=== PATIENT | male | born 2000 | race Caucasian/White ===

== ENCOUNTER 2024-12-13 17:08 | Emergency (ER) | payer BC, SELFPAY ==
[2024-12-13 17:45] VITALS: BP 133/67; PULSE 89; RESP 16; TEMP 36.6; O2SAT 100
--- NOTE | 2024-12-13 18:33 | ED_ITS ---
HPI - Skin/Abscess/Foreign Bdy General Chief complaint: Skin/Abscess/Foreign Body Stated complaint: INJURED R ELBOW/R KNEE/R LOWER LEG Time Seen by Provider: 12/13/24 18:33 Source: patient and RN notes reviewed Mode of arrival: ambulatory Limitations: no limitations History of Present Illness HPI narrative: 24-year-old male presents [facility] complaining of multiple rashes to his right arm and right leg. States be going for 1 week. Patient does jujitsu frequently and thought at 1st that it was mapped burn from being thrown on the mats a jujitsu. Patient has been trying antibacterial soap for symptom man agement without relief. Patient reports that rashes or itchy and weeping. Is also reports having redness and swelling to his chest. Patient also has acne on his back. Patient denies any fevers, body aches, chills, red streaking, nausea, vomiting, diarrhea. Related Data Allergies Allergy/AdvReac Type Severity Reaction Status Date / Time No Known Allergies Allergy Verified 12/13/24 17:59 Review of Systems Review of Systems: CONSTITUTIONAL: Denies fever, chills, or sweats. EYES: Denies visual changes, redness, or discharge. ENT: Denies rhinorrhea, congestion, sore throat, or otalgia. CARDIOVASCULAR: Denies chest pain, palpitations, or edema. RESPIRATORY: Denies cough or dyspnea. GASTROINTESTINAL: Denies abdominal pain, nausea, vomiting, or diarrhea. GENITOURINARY: Denies dysuria or hematuria. SKIN: Positive for rash and itching. MUSCULOSKELETAL: Denies back pain, joint pain, or myalgia. NEUROLOGIC: Denies headache, numbness, or weakness. PSYCHIATRIC: Denies anxiety or depression. All other systems reviewed are negative, except as documented in HPI. [facility] Past Medical History Medical History Migraine Family History Family History Mother Asthma Diabetes mellitus Depression Anxiety Heart disease Cerebrovascular accident Grandparent Alcoholism Asthma Cancer Diabetes mellitus Hypertension Heart disease Cerebrovascular accident Other Family history of alcoholism Social History Social History Social History: Caffeine- coffee/tea 2 cups daily Smoking status: Never smoker Alcohol intake: current Alcohol use details: occasionally Substance use: never Lack of Transportation: No Lack of Food: Never True Current Housing: I Have Housing Concerned About Future Housing: No Difficulty Paying Gas/Electric Bills: No Difficulty Paying for Meds: No Currently Unemployed: No Education: High School Diploma/GED Difficulty w/ Childcare or Family Care: No Living arrangements: with roommate(s) Agree to blood products: Yes Comments At the time of my signature, I reviewed and agree with the nursing past medical, surgical, social, and family history. There is no relevant family history pertinent to the patient complaint. Exam Narrative: GENERAL: This is a well-nourished, well-developed adult, in no apparent distress. They are non ill-appearing, nontoxic appearing. HEAD: normocephalic, atraumatic. EYES: Sclera clear/white. Conjunctiva normal. Vision is grossly intact. Extraocular movements intact EARS: External ears normal, Hearing grossly intact. NOSE: External nose normal THROAT: Mucous membranes moist, NECK: Normal range of motion CARDIOVASCULAR: Regular rate and rhythm RESPIRATORY: Respiratory rate normal, respiratory effort nonlabored, no respiratory distress SKIN: Right arm: Multiple circular and oval lesions throughout the patient's right arm primarily located around the right elbow extending to the proximal humerus to the proximal forearm. They are erythematous and hyperpigmented, some are scaly with central clearing present. Some lesions present with raised borders. Lesions are pruritic with some excoriations present. Satellite lesions present. No area of fluctuance or induration. Right leg: Multiple circular and oval lesions throughout the patient's right lower leg primarily located around the right anterior knee extending to the distal femur to the proximal tibia/fibula surface area. They are erythematous and hyperpigmented some lesions scaly with central clearing present. Some lesions present with raised borders. Lesions are pruritic with some excoriation present. Satellite lesions present. No area of fluctuance or induration. Chest wall: Area erythema of that is raised in macular. It is warm to touch. Induration present. No area of fluctuance. Area of erythema measuring approximately 3 cm x 2 cm located on the left lower medial chest wall. Back: Acne and small pustules present throughout patient is back. NEURO: awake, alert, and oriented to person, place and time. There were no obvious focal neurologic abnormalities. EXTREMITIES: No joint tenderness, effusion, or edema noted. BACK: Nontender without deformity. Course Course Emergency Course: Portions of this record may have been created with voice recognition software Level of Care: Express Care Visit Vital Signs Vital signs: Vital Signs Temperature 97.9 F 12/13/24 17:45 Pulse Rate 89 12/13/24 17:45 Respiratory Rate 16 12/13/24 17:45 Blood Pressure 133/67 12/13/24 17:45 Pulse Oximetry 100 12/13/24 17:45 Temperature 97.9 F 12/13/24 17:45 Pulse Rate 89 12/13/24 17:45 Respiratory Rate 16 12/13/24 17:45 Blood Pressure 133/67 12/13/24 17:45 Pulse Oximetry 100 12/13/24 17:45 Reviewed MDM - Skin/Abscess/Foreign Bdy MDM Narrative Medical decision making narrative: Symptoms are consistent with a tinea corporis. Patient also likely has a mild cellulitis to his chest wall. Given the excoriation and cellulitis present to the patient's chest wall, go ahead and treat empirically with doxycycline. Will also treat tinea corporis with clotrimazole cream. Discussed with patient the doxycycline may cause a sun rash so to wear sunscreen while taking doxycycline if he is going to be outside. Discussed physical exam findings. Advised supportive measures and signs/symptoms to go to the ER. Pt is appropriate for outpt treatment and f/u. Differential Diagnosis Differential diagnosis: Likely abscess of skin or subcutaneous tissue, dermatoph ytosis and cellulitis Critical Care Time Critical Care Time Critical Care Time: No Discharge Plan Discharge Clinical Impression: Tinea corporis, Cellulitis Patient Disposition: Home Condition: Stable Instructions: Antibiotic Form, Cellulitis (ED), Tinea Corporis (ED) Additional Instructions: Take the antibiotics as directed. Appears to have cellulitis on her chest. Also appears that you have ringworm or yeast infection to her right arm and right leg. Use the clotrimazole for 4 weeks. Please follow-up with your primary care provider for further evaluation and management. Please avoid any antibacterial soap. Washer skin daily with mild soap and water. Please keep your wounds covered while working. Please keep the wounds dry. Avoid any jujitsu or martial arts and tell your symptoms subside. Avoid scratching the w ounds is you may spread it to other parts of your body. May take Zyrtec or Claritin as needed for itchiness. If you develop any fevers, worsening symptoms, worsening redness or swelling, or any other concerns please go to the ER immediately. Patient Language: [place] Prescriptions: New clotrimazole 1 % cream 1 applic topical BID 28 Days Qty: 30 0RF doxycycline monohydrate 100 mg capsule 100 mg PO BID 7 Days Qty: 14 0RF Follow-up/Referrals: PHYSICIAN,EMERGENCY RESPONSE OFFICER [Primary Care Provider] - Stand Alone Forms: Work/School Release IP Time of Disposition: 18:29
== END 2024-12-13 18:33 | disposition home or self-care (01) ==
DX: B35.4 Tinea corporis (principal); L03.313 Cellulitis of chest wall
CPT/HCPCS: 99213; G0463